=== PATIENT | female | born 1960 | race Hispanic/Latino ===

== ENCOUNTER 2025-05-30 16:53 | Emergency (ER) | payer OTHER, BC ==
[~2025-05-30] VITALS: Ht 152.4 cm; Wt 83.9 kg
[2025-05-30 16:58] VITALS: BP 114/65; PULSE 84; RESP 18; TEMP 97.4
--- NOTE | 2025-05-30 17:52 | ERN ---
ED Note History of Present Illness Stated Complaint: GENERALIZED WEAKNESS Chief Complaint: Weakness Time Seen by MD: 17:03 Time Seen by Midlevel: 17:04 Dictation: 64-year-old female presents to the emergency department due to reported having a complaint of generalized weakness that started 4 weeks ago. Patient states that she was diagnosed with COVID back then and since then she has felt like she has no energy. Today, she denies having any fever, chills, runny nose, sore throat, coughing, nausea, vomiting, diarrhea or urinary symptoms. Patient states that she is pending to follow up with the PCP but has not due to having tested positive for COVID. Upon initial evaluation, the patient presents in no acute distress. Allergies: Coded Allergies: No Known Drug Allergies (Unverified Allergy, Unknown, 05/30/25) Emergency Care SECTION BEAMER: None Past Medical History Past Medical History: Hypothyroid Surgical History: Hysterectomy History: Not Applicable RN Note Reviewed/Agreed w/PFSH: Yes Review of System Dictation Constitutional: Fatigue, generalized weakness Initial Vital Sign VS Vital Signs Date Time Temp Pulse Resp B/P (MAP) Pulse Ox O2 Delivery O2 Flow Rate FiO2 05/30/25 16:58 97.3 84 18 114/65 98 Room Air 0 Physical Exam Dictation General: awake, alert, NAD Head/Face: Normocephalic, atraumatic Eyes: PERRL, EOMI ENT: Oral mucosa moist Neck: Trachea midline, supple Cardiovascular: RRR, no edema Respiratory: Symmetrical, non-labored Abdomen: Soft, non-tender, non-distended, no guarding. Skin: Warm, dry, good turgor, no rash MS/Extremity: Pulses equal, no cyanosis, neurovascular intact, FROM Neuro: COAx4, GCS 15, steady gait, Psych: Normal behavior, mood, and affect normal ED Course ED Course Orders Procedure Category Date Status Time Chest 2vws RAD 05/30/25 Logged 17:34 Vital Signs Date Time Temp Pulse Resp B/P (MAP) Pulse Ox O2 Delivery O2 Flow Rate FiO2 05/30/25 16:58 97.3 84 18 114/65 98 Room Air 0 Medical Decision Making MDM MDM: Differential diagnosis: Viral illness, influenza, viral syndrome. Rationale: Tests considered and ordered secondary to shared decision making include: Previous outside records reviewed: Old ER visits. Risk of complication and/or morbidity or mortality of patient management: None Medications-Per medication reconciliation Need for hospitalization: Patient does not meet criteria for hospitalization. Need for emergency major/minor surgery: No There are no social concerns with this patient. Prescription drug management Prescriptions will include symptomatic care Patient's prior external medical records from other ER visits were reviewed by me as indicated. Prior testing and results from previous visits were reviewed. Prior tests were taken into account with medical decision making and resource utilization, independent historian/historians were used to obtain complete medical history. I independently interpreted the test that were performed, results were reviewed by me and considered findings on radiology if ordered. This was not possible due to the patient eloping. Medical management and examination interpretation discussions were had by me with other qualified healthcare professionals as indicated for the patient's care. DX & DISP Disposition: Other(Comment) (Eloped) Departure Impression: Primary Impression: Viral syndrome Condition: Stable Referrals: SELF,REFERRAL (PCP) CHITRA KIDD May 30, 2025 17:52
--- NOTE | 2025-05-30 18:03 | NUR ---
PT CALLED FOR LAB DRAW, NO ANSWER. NOT IN LOBBY OR MAIN ER
--- NOTE | 2025-05-30 18:22 | NUR ---
PT CALLED. NO ANSWER. NOT IN LOBBY OR MAIN ER
--- NOTE | 2025-05-30 18:33 | NUR ---
PT CALLED, NO ANSWER
--- NOTE | 2025-05-30 18:41 | NUR ---
Claire KIDD INFORMAT[employer] ARCHITECT MADE AWARE OF PT ELOPEMENT
--- NOTE | 2025-05-30 18:44 | NUR ---
PT CALLED NO ANSWER. NO COMMUNICATION WITH STAFF ON DESIRE TO LEAVE
== END 2025-05-30 18:45 | disposition left against medical advice (07) ==
LOC: EDH 16:53
DX: B34.9 Viral infection, unspecified (principal); E03.9 Hypothyroidism, unspecified; Z90.710 Acquired absence of both cervix and uterus
CPT/HCPCS: 99282